=== PATIENT | male | born 1995 | race Caucasian/White ===

== ENCOUNTER 2016-11-22 20:08 | Emergency (ER) | payer OTHER ==
[~2016-11-22] VITALS: Ht 185.4 cm; Wt 83.9 kg
[~2016-11-22 20:08] MED LIST: CRUTCH1 EACH
[2016-11-22] MEDS ORDERED: IBUPROFEN800 MG PO (20:23)
[2016-11-22] MEDS ORDERED: PROTONIX40 MG PO (21:26)
--- NOTE | 2016-11-24 07:04 | EKG ---
[facility] [address] [place] [address] Signed Normal sinus rhythm with sinus arrhythmia Normal ECG When compared with ECG of 20-NOV-2016 11:41, No significant change was found Confirmed by HEIDY FORRESTER MD ([id number] on 11/24/2016 7:04:40 AM Electronically Signed By: HEIDY FORRESTER MD 11/24/16 0704 PATIENT NAME: PHONG HANCOCKTA GEE Electrocardiogram DATE OF : [birth year] PHYSICIAN: HEIDY FORRESTER MD REPORT #: [id number] REPORT IS CONFIDENTIAL AND NOT TO BE RELEASED WITHOUT AUTHORIZATION
== END 2016-11-22 21:35 | disposition home or self-care (01) ==
LOC: ED 20:08
DX: K20.9 Esophagitis, unspecified (principal); Z85.6 Personal history of leukemia; Z98.890 Other specified postprocedural states; Z88.5 Allergy status to narcotic agent
CPT/HCPCS: 80053; 85025; 93005; 93010; 99283; J7030